=== PATIENT | male | born 1995 | race Caucasian/White ===

== ENCOUNTER 2016-03-27 15:49 | Inpatient (IN) | payer BC ==
[~2016-03-27] VITALS: Ht 175.3 cm; Wt 72.5 kg
[~2016-03-27 15:49] MED LIST: ALBU18002 INH; IBUP-103 PO
[2016-03-27 16:42] LABS: MANUAL MICROSCOPIC REQUIRED? NO; REVIEW REQ? NO; URINE APPEARANCE CLEAR (CLEAR); URINE BILIRUBIN NEG (NEG); URINE COLOR YELLOW; URINE NITRITE NEG (NEG); URINE PH 7.5 (4.5-7.5); URINE SPECIFIC GRAVITY 1.005 (1.000-1.030); UROBILINOGEN NEG (NEG)
[2016-03-27 17:01] LABS: BASO % 0.3 %; BASO ABS # 0.02 K/uL (0-0.2); COMPLETE YES; HEMATOCRIT 41.1 % (42-52); IG% 0.3 %; LYMPH % 28.9 %; LYMPH ABS # 1.87 K/uL (1.2-3.4); MEAN CELL VOLUME 89.2 fL (80-100); MEAN CORPUSCULAR HEMOGLOBIN 32.3 pg (25-34); MEAN CORPUSCULAR HGB CONC 36.3 g/dl (32-36); MEAN PLATELET VOLUME 11.4 fL (7.4-10.4); MONO % 13.1 %; NEUT % 55.4 %; PLATELET COUNT 161 K/uL (130-400); RED BLOOD COUNT 4.61 M/uL (4.7-6.1); WHITE BLOOD COUNT 6.48 K/uL (4.8-10.8)
[2016-03-27 17:08] LABS: BENZODIAZEPINE, URINE NEG (NEG); COCAINE,URINE NEG (NEG); PHENCYCLIDINE, URINE NEG (NEG)
[2016-03-27 17:21] LABS: CREATININE 0.87 mg/dl (0.60-1.40)
[2016-03-27 17:22] LABS: BUN/CREATININE RATIO 15.4 (10-20); CALCIUM 8.5 mg/dl (8.5-10.1)
[2016-03-27 17:25] LABS: ACETAMINOPHEN < 2 ug/ml (10-30)
[2016-03-27 17:32] LABS: ALB/GLOB RATIO 1.5 (0.9-2); THYROID STIMULATING HORMONE 1.07 uIu/ml (0.300-4.500)
--- NOTE | 2016-03-27 17:36 | EMERGENCY ROOM VISIT NOTE ---
History Report prepared by Emelia: Arlen Troncoso Under the Supervision of: Dr. Armaan Stringer M.D. First contact with patient: 16:12 Chief Complaint: MENTAL HEALTH EVALUATION Stated Complaint: MENTAL HEALTH EVALUATION History of Present Illness The patient is a 20 year old male who presents to the Emergency Room with complaints of worsening suicidal ideation that started one month ago. He states that over the past month he has developed "intrusive suicidal ideations." He has experienced suicidal ideations in the past, but never to this extent. The patient states that over the past week he has experienced radical lifestyle changes. He has a history of substance abuse including, opiates, benzodiazepines , amphetamines, multiple psychedelic drugs, marijuana, and alcohol. The patient states that the last time he has used any of those things was one week ago when he drank alcohol. He states that he has been clean from opiates for 1.5 years and clean from benzodiazepines and amphetamines for several months. The patient was meeting with his therapist earlier today when his therapist expressed concern about the thoughts that he was having. The patient's therapist is at bedside and he states that he was concerned about the patient's disorganized and tangential thought process along with his suicidal ideations with plans of overdosing on benzodiazepines and alcohol. The patient states that he came here for further help. He does not see a psychiatrist or psychologist and he is not on any psych medications. The patient has seen psychiatric doctors in the past, but currently only sees his therapist. The patient states that he has been experiencing headaches, fatigue, and generalized body aches for the past couple weeks. He adds that he experienced nausea two days ago. Pt denies LOC, fevers, chills, diaphoresis, visual changes , neck pain, chest pain, breathing difficulties, vomiting, abdominal pain, back pain, melena, hematochezia, urinary symptoms, numbness, weakness, lymphadenopathy, rash, or other complaints. Source of History: patient, other (therapist) Onset: one month ago Position: head Quality: other (suicidal ideation) Timing: worsening Associated Symptoms: + fatigue, + headache, + nausea Note: generalized body aches Review of Systems See HPI for pertinent positives and negatives. A total of ten systems were reviewed and were otherwise negative. Past Medical & Surgical Medical Problems: (1) Asthma Family History FH: cancer Social History Smoking Status: Former Smoker Marital Status: single Housing Status: lives with family Occupation Status: student Current/Historical Medications Scheduled PRN Albuterol Sulfate (Proair Respiclick), 1 PUFF INH UD PRN for Shortness of Breath Ibuprofen Tab (Advil), 400-600 MG PO Q6H PRN for Headache or Pain Allergies Coded Allergies: Dust Mite Extract (Verified Allergy, Unknown, ., 03/27/16) Physical Exam Vital Signs Date Time Temp Pulse Resp B/P Pulse Ox O2 Delivery O2 Flow Rate FiO2 03/27/16 16:04 37.0 79 20 123/72 95 Room Air Physical Exam GENERAL: Awake, alert, well appearing, no distress HENT: Normocephalic, atraumatic. TM's normal. Oropharynx unremarkable. EYES: PERRL. EOMI. Normal conjunctiva. Sclera non-icteric. NECK: Supple. No nuchal rigidity. FROM. No JVD or bruit. RESPIRATORY: CTA CARDIAC: RRR. No murmur. ABDOMEN: Soft, non distended. No tenderness to palpation. No rebound or guarding. No masses. MUSCULOSKELETAL: Unremarkable. No edema. No discoloration. Gross motor strength symmetric. NEURO: Cranial nerves 2-12 grossly intact. Normal sensorium. No sensory or motor deficits noted. Speech normal. No pronator drift. SKIN: No rash or jaundice noted. LYMPH: No adenopathy. PSYCH: Depressed mood. Flat affect. Suicidal ideation with plan. No homicidal ideation. Medical Decision & Procedures Laboratory Results 03/27/16 16:50 Red Blood Count 4.61, Mean Corpuscular Volume 89.2, Mean Corpuscular Hemoglobin 32.3, Mean Corpuscular Hemoglobin Concent 36.3, Mean Platelet Volume 11.4, Neutrophils (%) (Auto) 55.4, Lymphocytes (%) (Auto) 28.9, Monocytes (%) (Auto) 13.1, Eosinophils (%) (Auto) 2.0, Basophils (%) (Auto) 0.3, Neutrophils # (Auto ) 3.59, Lymphocytes # (Auto) 1.87, Monocytes # (Auto) 0.85, Eosinophils # (Auto ) 0.13, Basophils # (Auto) 0.02 03/27/16 16:50 Test 03/27/16 16:22 03/27/16 16:50 Urine Color YELLOW Urine Appearance CLEAR (CLEAR) Urine pH 7.5 (4.5-7.5) Urine Specific [place] 1.005 (1.000-1.030) Urine Protein NEG (NEG) Urine Glucose (UA) NEG (NEG) Urine Ketones NEG (NEG) Urine Occult Blood NEG (NEG) Urine Nitrite NEG (NEG) Urine Bilirubin NEG (NEG) Urine Urobilinogen NEG (NEG) Urine Leukocyte Esterase NEG (NEG) Urine Opiates Screen NEG (NEG) Urine Methadone, Qualitative NEG (NEG) Urine Barbiturates NEG (NEG) Urine Phencyclidine (PCP) Level NEG (NEG) Ur Amphetamine/Methamphetamine NEG (NEG) MDMA (Ecstasy) Screen NEG (NEG) Urine Benzodiazepines Screen NEG (NEG) Urine Cocaine Metabolite NEG (NEG) Urine Marijuana (THC) NEG (NEG) White Blood Count 6.48 K/uL (4.8-10.8) Red Blood Count 4.61 M/uL (4.7-6.1) Hemoglobin 14.9 g/dL (14.0-18.0) Hematocrit 41.1 % (42-52) Mean Corpuscular Volume 89.2 fL (80-100) Mean Corpuscular Hemoglobin 32.3 pg (25-34) Mean Corpuscular Hemoglobin Concent 36.3 g/dl (32-36) Platelet Count 161 K/uL (130-400) Mean Platelet Volume 11.4 fL (7.4-10.4) Neutrophils (%) (Auto) 55.4 % Lymphocytes (%) (Auto) 28.9 % Monocytes (%) (Auto) 13.1 % Eosinophils (%) (Auto) 2.0 % Basophils (%) (Auto) 0.3 % Neutrophils # (Auto) 3.59 K/uL (1.4-6.5) Lymphocytes # (Auto) 1.87 K/uL (1.2-3.4) Monocytes # (Auto) 0.85 K/uL (0.11-0.59) Eosinophils # (Auto) 0.13 K/uL (0-0.5) Basophils # (Auto) 0.02 K/uL (0-0.2) RDW Standard Deviation 39.0 fL (36.4-46.3) RDW Coefficient of Variation 12.1 % (11.5-14.5) Immature Granulocyte % (Auto) 0.3 % Immature Granulocyte # (Auto) 0.02 K/uL (0.00-0.02) Anion Gap 9.0 mmol/L (3-11) Est Creatinine Clear Calc Drug Dose 134.4 ml/min Estimated GFR () 143.0 Estimated GFR (Non- 123.4 BUN/Creatinine Ratio 15.4 (10-20) Calcium Level 8.5 mg/dl (8.5-10.1) Total Bilirubin 0.7 mg/dl (0.2-1) Direct Bilirubin 0.2 mg/dl (0-0.2) Aspartate Amino Transf (AST/SGOT) 18 U/L (15-37) Alanine Aminotransferase (ALT/SGPT) 20 U/L (12-78) Alkaline Phosphatase 77 U/L (45-117) Total Protein 7.2 gm/dl (6.4-8.2) Albumin 4.3 gm/dl (3.4-5.0) Globulin 2.9 gm/dl (2.5-4.0) Albumin/Globulin Ratio 1.5 (0.9-2) Thyroid Stimulating Hormone (TSH) 1.070 uIu/ml (0.300-4.500) Salicylates Level < 1.7 mg/dl (2.8-20) Acetaminophen Level < 2 ug/ml (10-30) Ethyl Alcohol mg/dL < 3.0 mg/dl (0-3) Laboratory results reviewed by me Medications Administered Medications (Trade) Dose Ordered Sig/Joleen Route Start Time Stop Time Status Last Admin Dose Admin Hydroxyzine HCl (Vistaril Tab) 50 mg HSZ PRN PO 03/27/16 19:15 04/26/16 19:14 03/27/16 22:27 50 MG ED Course 1631: The patient was evaluated in room A7. A complete history and physical exam was performed. 1851: I reassessed the patient. He is resting comfortably. 1952: The psych nurse outreach case manager informed me that the patient has been accepted to [address] [place] [address], so he will go there for further management. Medical Decision Triage Nursing notes reviewed and agree them. Additional history obtained from the patient's therapist. The patient's history was concerning for possible psychiatric disturbance. Differential diagnosis: Etiologies such as mood disorder, infection, hypoglycemia, electrolyte abnormalities, cardiac sources, intracerebral event, toxicologic, neurologic, as well as others were entertained. Physical examination: The physical examination was performed as above and was completely benign. No emergent medical pathologies were noted. ER treatment provided: No medication given. On reassessment the patient felt better. Diagnostic interpretation by me: The labs revealed an unremarkable CBC, chemistry panel, LFTs and lipase. Tylenol, salicylate and alcohol levels negative. Urine drug screen negative. Consultation: A consultation was placed with mental health. The patient was evaluated by mental health in the emergency department and they felt admission was warranted. The patient was voluntarily admitted for further treatment. The chart was completed utilizing [employer] Speech voice recognition software. Grammatical errors, random word insertions, pronoun errors, and incomplete sentences are an occasional consequence of this system due to software limitations, ambient noise, and hardware issues. Any formal questions or concerns about the content, text, or information contained within the body of this dictation should be directly addressed to the physician for clarification. Impression Primary Impression: Suicidal ideation Additional Impression: Mood disorder Scribe Attestation The scribe's documentation has been prepared under my direction and personally reviewed by me in its entirety. I confirm that the note above accurately reflects all work, treatment, procedures, and medical decision making performed by me. Departure Information Dispostion [facility] (3 [facility]) Referrals Camelia Macdonald D.O. (PCP) Patient Instructions [facility] Problem Qualifiers
[2016-03-27] MEDS ORDERED: hydrOXYzine HCL 25 MG TAB PO PRN (19:15)
[2016-03-27] MEDS ORDERED: ACETAMINOPHEN 325 MG TAB PO PRN (19:15)
[2016-03-27] MEDS ORDERED: MAGNESIUM HYDROXIDE SUSP 30 ML UDC PO PRN (19:15)
[2016-03-27] MEDS ORDERED: ALUMINUM/MAGNESIUM SUSP 30 ML UDC PO PRN (19:15)
[2016-03-27] MEDS ORDERED: BISMUTH SUBSALICYLATE PER ML OMNICELL CHARGE PO PRN (19:15)
[2016-03-27] MEDS ORDERED: SODIUM CHLORIDE 0.65% NA SOLN 45 ML (OCEAN) PRN (19:15)
[2016-03-27 19:48] VITALS: O2SAT 97
[2016-03-27 19:58] VITALS: BP 140/85; PULSE 90; TEMP 36.9; Ht 175.3 cm; Wt 72.5 kg
[2016-03-27] MEDS: hydrOXYzine HCL 25 MG TAB PO PRN (22:27)
[2016-03-27] MEDS ORDERED: NURSING VERBAL MED ORDER ONE (23:15)
[2016-03-28] MEDS ORDERED: ALBUTEROL HFA INHALER 8.5 GM INH PRN (01:45)
[2016-03-28 06:57] VITALS: BP_SYST 105; BP_SYST 120; BP_DIAS 69; BP_DIAS 71; PULSE 69; PULSE 85; TEMP 36.4
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
[2016-03-28] MEDS: hydrOXYzine HCL 25 MG TAB PO PRN (21:40)
[2016-03-29 06:58] VITALS: BP_SYST 104; BP_SYST 99; BP_DIAS 63; BP_DIAS 70; PULSE 68; PULSE 82; TEMP 36.4
--- NOTE | 2016-03-29 11:39 | Psychiatric Progress Notes ---
Progress Note Date of Service Mar 29, 2016. Interval History 20 yo male admitted voluntarily on 03/28 with depression and suicidality. Patient obtained sobriety from multiple drugs 1 month ago, and is struggling life in a sober state. Chief Complaint "I spent a lot of time meditating yesterday. ". Subjective Patient was seen & assessed interval progress reviewed with Treatment Team. Ray says that he continues in his spiritual journey, looking to mandaen and christian to guide him. He remains convinced, that as an addict, he does not want to rely on medications of any kind, that starting meds would be taking a step back for him. Will to his uatsdin beliefs, he believes that he is intended to suffer along his journey in order to get to the place in life that he wants. He does not see a risk for suicide since he brought himself to the hospital, knowing that he needed help. He says that he now realizes he has a purpose in life, and wants to maximize his opportunity to succeed. He denies SI /HI, denies aud/vis hallucinations. Review of Systems Constitutional: No chills, No fatigue, No fever, No problem reported, No sweats , No weakness, No weight loss ENT: No dental problems, No hearing loss, No nasal symptoms, No problem reported, No sore throat, No tinnitus, No trouble swallowing, No unusual epistaxis Respiratory: No cough, No dyspnea at rest, No dyspnea on exertion, No hemoptysis, No problem reported, No shortness of breath, No sputum, No wheezing Cardiovascular: No PND, No chest pain, No claudication, No edema, No orthopnea , No palpitations, No problem reported Abdomen: No GI bleeding, No constipation, No diarrhea, No nausea, No pain, No problem reported, No vomiting Musculoskeletal: No calf pain, No joint pain, No muscle pain, No problem reported, No swelling Neurologic: No balance problems, No memory loss, No numbness/tingling, No paralysis, No problem reported, No vertigo, No weakness Psychiatric: + anxiety, + depression symptoms Integumentary: No bleeding, No color change, No itch, No new/changing skin lesions, No problem reported, No rash Sleep Information Total Hours of Sleep: 7.00 Meal Information Percent of Breakfast Consumed: 100 Percent of Lunch Consumed: 100 Percent of Dinner Consumed: 100 Mental Status Exam During interview pt is: alert and oriented, cooperative Appearance: appropriately dressed, appropriately groomed Eye contact is: fair Motor behavior is: steady gait & station, no abnormal motor movements Speech: other (rapid but not pressured, pendantic, tends to use many flowery words and concepts to get his point across) Affect: mood congruent, blunted Mood is: depressed, anxious Thought process: looseness of associations Thought content: reality based without delusions (but eccentric) Suicidal thought are: denied Homicidal thoughts are: denied Hallucinations: denies auditory, denies visual Cognition: memory grossly intact, attention grossly intact Intelligence estimated to be: average Insight: limited Judgement: limited Impression Ray is adjusting to the unit and finding it a good place to meditate and explore his goals and how to remain focused on life. He does not, however, want to start meds, but wants to rely on therapy and his spiritual affiliations. I have provided him with information on Effexor for his ongoing consideration, and would like to give him a few more days to learn healthy coping strategies before considering discharge. Right now he has some very spiritual ideas about moving forward, little of which will provide him help when reality hits and he can't manage his school and work. Will continue to work on grounding. Continued Inpatient Care He continues to require inpatient care due to the severity of his condition, and lack of mediation of any risk factors for suicde. Plan (1) Major depressive disorder, recurrent severe without psychotic features 03/29 - Patient continues to refuse meds, wanting to rely on therapy and spirituality. Will continue to discuss - Q 15 min checks for safety - Encourage participation in group and individual counseling - Family meeting - Coordinate with therapist - REcommend a trail of Effexor - Assist the patient to learn and utilize healthy coping strategies (2) Polysubstance dependence 03/29 - In early remission, sober X 1 month - Recommend OP substance abuse treatment - Recovery protocol Discharge / Aftercare Planning Therapist: Name: Armaan Hernandes at [facility] Visit Code E&M Code: 99080 Risk Factors Assessment Male: Yes : Yes /single/: Yes Higher / Fall in social status: No Access to guns: Yes Health problems: No Mental Health Diagnoses: Yes Substance use disorders: Yes Previous attempt: No Previous psychiatric stay: No Smoker: No Protective Factors Assessment Jew beliefs: Yes : No Responsible for young children: No Employed: Yes Stable relationships: Yes Supportive family: Yes Good rapport with provider: Yes Data Vital Signs Last 24 Hrs: Date Time Temp Pulse Resp B/P Pulse Ox O2 Delivery O2 Flow Rate FiO2 03/29/16 06:58 36.4 68 15 99/63 82 104/70 Meds Administered Last 24 Hrs: Meds Administered (Past 24Hrs) Medications (Trade) Dose Ordered Sig/Joleen Route Start Time Stop Time Status Last Admin Dose Admin Hydroxyzine HCl (Vistaril Tab) 50 mg HSZ PRN PO 03/27/16 19:15 04/26/16 19:14 03/28/16 21:40 50 MG Lab Results Last 24 Hrs: 03/27/16 16:50 Red Blood Count 4.61, Mean Corpuscular Volume 89.2, Mean Corpuscular Hemoglobin 32.3, Mean Corpuscular Hemoglobin Concent 36.3, Mean Platelet Volume 11.4, Neutrophils (%) (Auto) 55.4, Lymphocytes (%) (Auto) 28.9, Monocytes (%) (Auto) 13.1, Eosinophils (%) (Auto) 2.0, Basophils (%) (Auto) 0.3, Neutrophils # (Auto ) 3.59, Lymphocytes # (Auto) 1.87, Monocytes # (Auto) 0.85, Eosinophils # (Auto ) 0.13, Basophils # (Auto) 0.02 03/27/16 16:50 Test 03/27/16 16:22 03/27/16 16:50 Urine Color YELLOW Urine Appearance CLEAR (CLEAR) Urine pH 7.5 (4.5-7.5) Urine Specific [place] 1.005 (1.000-1.030) Urine Protein NEG (NEG) Urine Glucose (UA) NEG (NEG) Urine Ketones NEG (NEG) Urine Occult Blood NEG (NEG) Urine Nitrite NEG (NEG) Urine Bilirubin NEG (NEG) Urine Urobilinogen NEG (NEG) Urine Leukocyte Esterase NEG (NEG) Urine Opiates Screen NEG (NEG) Urine Methadone, Qualitative NEG (NEG) Urine Barbiturates NEG (NEG) Urine Phencyclidine (PCP) Level NEG (NEG) Ur Amphetamine/Methamphetamine NEG (NEG) MDMA (Ecstasy) Screen NEG (NEG) Urine Benzodiazepines Screen NEG (NEG) Urine Cocaine Metabolite NEG (NEG) Urine Marijuana (THC) NEG (NEG) White Blood Count 6.48 K/uL (4.8-10.8) Red Blood Count 4.61 M/uL (4.7-6.1) Hemoglobin 14.9 g/dL (14.0-18.0) Hematocrit 41.1 % (42-52) Mean Corpuscular Volume 89.2 fL (80-100) Mean Corpuscular Hemoglobin 32.3 pg (25-34) Mean Corpuscular Hemoglobin Concent 36.3 g/dl (32-36) Platelet Count 161 K/uL (130-400) Mean Platelet Volume 11.4 fL (7.4-10.4) Neutrophils (%) (Auto) 55.4 % Lymphocytes (%) (Auto) 28.9 % Monocytes (%) (Auto) 13.1 % Eosinophils (%) (Auto) 2.0 % Basophils (%) (Auto) 0.3 % Neutrophils # (Auto) 3.59 K/uL (1.4-6.5) Lymphocytes # (Auto) 1.87 K/uL (1.2-3.4) Monocytes # (Auto) 0.85 K/uL (0.11-0.59) Eosinophils # (Auto) 0.13 K/uL (0-0.5) Basophils # (Auto) 0.02 K/uL (0-0.2) RDW Standard Deviation 39.0 fL (36.4-46.3) RDW Coefficient of Variation 12.1 % (11.5-14.5) Immature Granulocyte % (Auto) 0.3 % Immature Granulocyte # (Auto) 0.02 K/uL (0.00-0.02) Anion Gap 9.0 mmol/L (3-11) Est Creatinine Clear Calc Drug Dose 134.4 ml/min Estimated GFR () 143.0 Estimated GFR (Non- 123.4 BUN/Creatinine Ratio 15.4 (10-20) Calcium Level 8.5 mg/dl (8.5-10.1) Total Bilirubin 0.7 mg/dl (0.2-1) Direct Bilirubin 0.2 mg/dl (0-0.2) Aspartate Amino Transf (AST/SGOT) 18 U/L (15-37) Alanine Aminotransferase (ALT/SGPT) 20 U/L (12-78) Alkaline Phosphatase 77 U/L (45-117) Total Protein 7.2 gm/dl (6.4-8.2) Albumin 4.3 gm/dl (3.4-5.0) Globulin 2.9 gm/dl (2.5-4.0) Albumin/Globulin Ratio 1.5 (0.9-2) Thyroid Stimulating Hormone (TSH) 1.070 uIu/ml (0.300-4.500) Salicylates Level < 1.7 mg/dl (2.8-20) Acetaminophen Level < 2 ug/ml (10-30) Ethyl Alcohol mg/dL < 3.0 mg/dl (0-3)
[2016-03-29] MEDS: hydrOXYzine HCL 25 MG TAB PO PRN (23:33)
[2016-03-30 06:58] VITALS: BP_SYST 110; BP_SYST 114; BP_DIAS 69; BP_DIAS 74; PULSE 73; PULSE 83; TEMP 36.4
--- NOTE | 2016-03-30 09:21 | Psychiatric Progress Notes ---
Progress Note Date of Service Mar 30, 2016. Interval History 20 yo male admitted voluntarily on 03/28 with depression and suicidality. Patient obtained sobriety from multiple drugs 1 month ago, and is struggling life in a sober state. Chief Complaint "hard to say I just woke up". Subjective Patient was seen & assessed interval progress reviewed with the nursing staff and treatment team. He reports that he is "just waking up so I can't tell you how I feel" He sites [employer] in a chair he pulled about 2 ft from this provider. He sits in a somewhat erect posture and is notably verbose and using vague terms to asnwer questions but when pressed for detail will share specifics information. He rates mood as 7/10 (10 best, 0 most depressed) stating he is not having SI, when asked what has changed he states that being out of his old job and hope of a new job has helped and "learning coping kills and safety strategies." when pressed he states "meditation" and routine will be helpful to him and states it is his "mindfulness" that caused him to be aware enough to come to the hospital. He continues to decline medication "I want to see how my mood stablizes off all substances" He did take vistaril prn for sleep last night wtih 5.5hours at shift change but was still in bed resting 3 hours after that time waken to verbal stimuli noting he is "groggy" but slept well. He denies racing thoughts, or irritability, and denies h/h/w. He is vague about his safety plan but when revieiwing wrote a very zoroastrian based plan and somewhat hypergraphic nature with things written in the margins as well. He again denies feeling energized today. He states he plans to abstain from substances and return to live with his mother , and f/u in therapy with his therapist, as well as obtain a new job with more regular hours after discharge. Review of Systems He denies symptoms other than "groggyness" on 10 system ROS Sleep Information Total Hours of Sleep: 5.50 (and had several hours additionally after shift change) Meal Information Percent of Breakfast Consumed: 100 Percent of Lunch Consumed: 100 Percent of Dinner Consumed: 90 Mental Status Exam During interview pt is: alert and oriented, cooperative Appearance: appropriately dressed, appropriately groomed (hair is dissheveled and he is in his clothes in bed) Eye contact is: fair Motor behavior is: steady gait & station, no abnormal motor movements Speech: other (rapid but not pressured, pendantic, tends to use many flowery words and concepts and long vague stories to get his point across) Affect: mood congruent, blunted Mood is: other (seems detached and subdued by observation, states it is "okay") Thought process: circumstantial (uses vague and diffuse hyperreligious language and requires significant redirection to deliver his point) Thought content: reality based without delusions (but eccentric) Suicidal thought are: denied Homicidal thoughts are: denied Hallucinations: denies auditory, denies visual Cognition: memory grossly intact, attention grossly intact Intelligence estimated to be: average Insight: limited Judgement: limited Impression Ray is adjusting to the unit and finding it a good place to meditate and explore his goals and how to remain focused on life. He does not, however, want to start meds, but wants to rely on therapy and his spiritual affiliations. He was provided 03/29/16 with information on Effexor for his ongoing consideration, and would like to give him a few more days to learn healthy coping strategies before considering discharge as well as observation to assure this hyperreligious tangential focus is not the emergence of elevated mood state. He has ongoing spiritual ideas about moving forward, little of which will provide him concrete and prgamatic ideas in reality hits and he can' t manage his school and work. Will continue to work on grounding and concrete skills to recognize distress, and have coping skills and support resources to enact when feeling that way. Continued Inpatient Care He continues to require inpatient care due to the severity of his prsenting condition, and lack of mediation of any risk factors for suicide and need to assure stability given his limited insight. Plan (1) Major depressive disorder, recurrent severe without psychotic features 03/29 - Patient continues to refuse meds, wanting to rely on therapy and spirituality. Will continue to discuss - Q 15 min checks for safety - Encourage participation in group and individual counseling - Family meeting - Coordinate with therapist - Recommend a trial of Effexor - Assist the patient to learn and utilize healthy coping strategies 03/30/16 continues to decline daily medication for mood and anxiety challenged him to continue to develop concrete safety plan and coping skills as well as recognition of s/sx when he is in distress, he agrees to do so he needs further inpatient observation as his vauge hyperreligious and slight tendency to hypergraphic worksheet may be signs of personality vs. an emerging mood instability (2) Polysubstance dependence 03/29 and 03/30 - In early remission, sober X 1 month prior to admission - Recommend OP substance abuse treatment - Recovery protocol Discharge / Aftercare Planning Therapist: Name: Armaan Avinashvidhi at [facility] Visit Code E&M Code: 61812 Risk Factors Assessment Male: Yes : Yes /single/: Yes Higher / Fall in social status: No Access to guns: Yes Health problems: No Mental Health Diagnoses: Yes Substance use disorders: Yes Previous attempt: No Previous psychiatric stay: No Smoker: No Protective Factors Assessment Yarsanism beliefs: Yes : No Responsible for young children: No Employed: Yes Stable relationships: Yes Supportive family: Yes Good rapport with provider: Yes Data Vital Signs Last 24 Hrs: Date Time Temp Pulse Resp B/P Pulse Ox O2 Delivery O2 Flow Rate FiO2 03/30/16 06:58 36.4 73 16 110/69 83 114/74 Meds Administered Last 24 Hrs: Current Inpatient Medications Medications (Trade) Dose Ordered Sig/Joleen Route Start Time Stop Time Status Last Admin Dose Admin Acetaminophen (Tylenol Tab) 650 mg Q4H PRN PO 03/27/16 19:15 04/26/16 19:14 Bismuth Subsalicylate (Kaopectate Liqd) 15 ml PRN PRN PO 03/27/16 19:15 04/26/16 19:14 Al Hydroxide/Mg Hydroxide (Maalox Susp) 30 ml Q4H PRN PO 03/27/16 19:15 04/26/16 19:14 Magnesium Hydroxide (Milk Of Magnesia Susp) 30 ml DAILY PRN PO 03/27/16 19:15 04/26/16 19:14 Sodium Chloride ([place] Nasal [place]) PRN PRN NA 03/27/16 19:15 04/26/16 19:14 Hydroxyzine HCl (Vistaril Tab) 50 mg HSZ PRN PO 03/27/16 19:15 04/26/16 19:14 03/29/16 23:33 50 MG Hydroxyzine HCl (Vistaril Tab) 25 mg Q4H PRN PO 03/27/16 19:15 04/26/16 19:14 Albuterol (Proair Hfa) 1 puffs Q4H PRN INH 03/28/16 01:45 04/27/16 01:44
[2016-03-30] MEDS: hydrOXYzine HCL 25 MG TAB PO PRN (23:25)
[2016-03-31 06:59] VITALS: BP_SYST 113; BP_SYST 119; BP_DIAS 77; BP_DIAS 81; PULSE 102; PULSE 82; TEMP 36.5
--- NOTE | 2016-03-31 17:52 | Psychiatric Progress Notes ---
Progress Note Date of Service Mar 31, 2016. Interval History 20 yo male admitted voluntarily on 03/28 with depression and suicidality. Patient obtained sobriety from multiple drugs 1 month ago, and is struggling life in a sober state. Chief Complaint "I am anxious because of an event that just happened". Subjective Patient was seen & assessed interval progress reviewed with Treatment Team He was observed by this provider to dance in a spritely way yesterday and seems to have a consistently expressive way of engaging others but is not hyperverbal , or disorganized, no increased goal directed activity, no evidence of grandiosity. Today when we meet the Patient is notably expressive and shares that he "just had an event which relates to my panic" describing in somewhat expressive yet vague terms overhearing a discussion about sexual issues between a roommate and roommate's mother while patient was resting in the room and sexual discussion caused his first panic attack and he began to feel panic-like. Patient is very overt to reasure this provider that he is using breathing and meditation effectively to calm himself. He rates his anxiety as a 1/10 earlier today, but as a 9/10 at this moment. Mood is a 7/10 "very good" and he feels his jewish reading and meditation is helpful. He plans to ask the counselor for some individual therapy time today. He denies SI, intention or plan. and hopes to reschedule with his outpatient therapist. He is hopeful about changing jobs and living with his mother after discharge. Review of Systems He denies physical concerns on ROS Sleep Information Total Hours of Sleep: 5.50 Meal Information Percent of Breakfast Consumed: 100 Percent of Lunch Consumed: 100 Percent of Dinner Consumed: 100 Mental Status Exam During interview pt is: alert and oriented, cooperative Appearance: appropriately dressed, appropriately groomed (hair is dissheveled and he is in his clothes in bed) Eye contact is: good Motor behavior is: steady gait & station, no abnormal motor movements Speech: other (rapid but not pressured, pendantic, tends to use many flowery words and concepts and long vague stories to get his point across) Affect: mood congruent, euthymic (with an expressive entertaining quality to interacting with this provider and others) Mood is: other (seems jovial but not euphoric) Thought process: circumstantial (he continues to tell stories to share in an expressive way, linear today) Thought content: reality based without delusions (but eccentric) Suicidal thought are: denied Homicidal thoughts are: denied Hallucinations: denies auditory, denies visual Cognition: memory grossly intact, attention grossly intact Intelligence estimated to be: average Insight: fair Judgement: fair Impression Ray is adjusting to the unit and finding it a good place to meditate and explore his goals and how to remain focused on life. He does not, however, want to start meds, but wants to rely on therapy and his spiritual affiliations. He was provided 03/29/16 with information on Effexor for his ongoing consideration, and would like to give him a few more days to learn healthy coping strategies before considering discharge as well as observation to assure this hyperreligious tangential focus is not the emergence of elevated mood state. He has ongoing spiritual ideas about moving forward, little of which will provide him concrete and prgamatic ideas in reality hits and he can' t manage his school and work. Will continue to work on grounding and concrete skills to recognize distress, and have coping skills and support resources to enact when feeling that way. Continued Inpatient Care He continues to require inpatient care due to the severity of his prsenting condition, and lack of mediation of any risk factors for suicide and need to assure stability given his limited insight. Plan (1) Major depressive disorder, recurrent severe without psychotic features 03/29 - Patient continues to refuse meds, wanting to rely on therapy and spirituality. Will continue to discuss - Q 15 min checks for safety - Encourage participation in group and individual counseling - Family meeting - Coordinate with therapist - Recommend a trial of Effexor - Assist the patient to learn and utilize healthy coping strategies 03/30/16 continues to decline daily medication for mood and anxiety challenged him to continue to develop concrete safety plan and coping skills as well as recognition of s/sx when he is in distress, he agrees to do so he needs further inpatient observation as his vague hyperreligious and slight tendency to hypergraphic worksheet may be signs of personality vs. an emerging mood instability 03/31 declines meds is denying s/sx of depression, seems dramatic and odd at times but not overtly manic. Cannot rule out beginning of jasvir, vs. odd- eccentric personality that has histrionic features or schizotypal features (2) Polysubstance dependence 03/29 and 03/30 - In early remission, sober X 1 month prior to admission - Recommend OP substance abuse treatment - Recovery protocol Discharge / Aftercare Planning Therapist: Name: Armaan Da Silvavidhi at [facility] Visit Code E&M Code: 89955 Risk Factors Assessment Male: Yes : Yes /single/: Yes Higher / Fall in social status: No Access to guns: Yes Health problems: No Mental Health Diagnoses: Yes Substance use disorders: Yes Previous attempt: No Previous psychiatric stay: No Smoker: No Protective Factors Assessment Denominational beliefs: Yes : No Responsible for young children: No Employed: Yes Stable relationships: Yes Supportive family: Yes Good rapport with provider: Yes Data Vital Signs Last 24 Hrs: Date Time Temp Pulse Resp B/P Pulse Ox O2 Delivery O2 Flow Rate FiO2 03/31/16 06:59 36.5 82 16 119/81 102 113/77 Meds Administered Last 24 Hrs: Current Inpatient Medications Medications (Trade) Dose Ordered Sig/Joleen Route Start Time Stop Time Status Last Admin Dose Admin Acetaminophen (Tylenol Tab) 650 mg Q4H PRN PO 03/27/16 19:15 04/26/16 19:14 Bismuth Subsalicylate (Kaopectate Liqd) 15 ml PRN PRN PO 03/27/16 19:15 04/26/16 19:14 Al Hydroxide/Mg Hydroxide (Maalox Susp) 30 ml Q4H PRN PO 03/27/16 19:15 04/26/16 19:14 Magnesium Hydroxide (Milk Of Magnesia Susp) 30 ml DAILY PRN PO 03/27/16 19:15 04/26/16 19:14 Sodium Chloride ([place] Nasal [place]) PRN PRN NA 03/27/16 19:15 04/26/16 19:14 Hydroxyzine HCl (Vistaril Tab) 50 mg HSZ PRN PO 03/27/16 19:15 04/26/16 19:14 03/30/16 23:25 50 MG Hydroxyzine HCl (Vistaril Tab) 25 mg Q4H PRN PO 03/27/16 19:15 04/26/16 19:14 Albuterol (Proair Hfa) 1 puffs Q4H PRN INH 03/28/16 01:45 04/27/16 01:44
[2016-03-31] MEDS: hydrOXYzine HCL 25 MG TAB PO PRN (23:40)
[2016-04-01 06:55] VITALS: BP_SYST 117; BP_SYST 121; BP_DIAS 75; BP_DIAS 82; PULSE 101; PULSE 61; TEMP 36.4
--- NOTE | 2016-04-01 09:37 | Discharge Instructions ---
Discharge Information Report Includes Report will include the: Discharge Instructions & Summary Admission Admission Date / Time: Mar 27, 2016 at 19:15 Reason for Admission: Major Depressive Disorder Recurrent Discharge Discharge Diagnosis / Problem: Depression, polysubstance dependence in early remission Condition at Discharge: Good Discharge Goals Goal(s): Decrease discomfort, Improve disease control, Prevent Disease Progression Activity Recommendations Activity Limitations: resume your previous activity . Instructions / Follow-Up Instructions / Follow-Up . SPECIAL CARE INSTRUCTIONS: 1. Follow through with your scheduled aftercare appointments. If unable to keep an appointment, please call to reschedule. 2. Take your medication only as prescribed. Medication should not be changed or stopped without the approval of your doctor. In the event of worsening symptoms or concerns about side effects, contact your doctor immediately. 3. Utilize new healthy coping skills, anger management skills, and stress management skills learned during your hospitalization. Journal feelings and process them with a support person. Identify stressors or situations that may result in relapse, deterioration or inappropriate behaviors and develop a plan to deal with those issues. 4. If your coping skills are ineffective and you are in crisis, contact your outpatient providers for direction. If unable to reach your providers, please call the CAN HELP LINE AT or go to the closest Emergency Room. 5. Avoid alcohol and un-prescribed drugs. 6. You have been provided with the Mental Health Advance Directives Pamphlet for your review. AFTERCARE APPOINTMENTS: * Please call your insurance company prior to your scheduled appointment to confirm your aftercare providers are covered. Take your insurance information to your appointments. . Discharge / Aftercare Planning Therapist: Name Of Therapist: Armaan Hernandes at [facility] . Follow-Up Care Plan for Follow-Up Care: The patient will return to his therapist, Mr. Blas at [facility] Current Hospital Diet Patient's current hospital diet: Regular Diet Discharge Diet Recommended Diet: Regular Diet Procedures Procedures Performed: No Pending Studies Pending Studies at Discharge: No Medical Emergencies . Who to Call and When: Medical Emergencies: For questions or emergencies related to your hospital stay, please contact the Inpatient Behavioral Health Unit at [phone]. A cell changer is on-call 02/09 for the Behavioral Health Unit for emergencies At any time you feel your situation is an emergency, you may also call 911 immediately. . Non-Emergent Contact Non-Emergency issues call your: Primary Care Provider, Therapist Advance Directives Existing Advance Directive: No Do You Have an Existing Mental: No Existing Living Will: No Existing Power of Finance Manager: No Advance Directives Info Given: To Pt/S.O. Discharge Summary Admission HPI Per the Admitting provider: Please see attached H&P Hospital Course (1) Major depressive disorder, recurrent severe without psychotic features 03/29 - Patient continues to refuse meds, wanting to rely on therapy and spirituality. Will continue to discuss - Q 15 min checks for safety - Encourage participation in group and individual counseling - Family meeting - Coordinate with therapist - Recommend a trial of Effexor - Assist the patient to learn and utilize healthy coping strategies 03/30/16 continues to decline daily medication for mood and anxiety challenged him to continue to develop concrete safety plan and coping skills as well as recognition of s/sx when he is in distress, he agrees to do so he needs further inpatient observation as his vague hyperreligious and slight tendency to hypergraphic worksheet may be signs of personality vs. an emerging mood instability 03/31 declines meds is denying s/sx of depression, seems dramatic and odd at times but not overtly manic. Cannot rule out beginning of jasvir, vs. odd- eccentric personality that has histrionic features or schizotypal features (2) Polysubstance dependence 03/29 and 03/30 - In early remission, sober X 1 month prior to admission - Recommend OP substance abuse treatment - Recovery protocol Risk Factors Assessment Male: Yes : Yes /single/: Yes Higher / Fall in social status: No Access to guns: Yes Health problems: No Mental Health Diagnoses: Yes Substance use disorders: Yes Previous attempt: No Previous psychiatric stay: No Smoker: No Protective Factors Assessment Buddhist beliefs: Yes : No Responsible for young children: No Employed: Yes Stable relationships: Yes Supportive family: Yes Good rapport with provider: Yes Day of Discharge Assessment COURSE OF HOSPITALIZATION: The patient was in our unit for 5 days but did not want to start any medications. He has recently, approximately one month ago, stopped abusing drugs and at this point did not want to have to rely on medications to maintain good mood. He presented as somewhat eccentric with many eclectic spiritual and personal ideas about how to manage his depression and substance abuse moving forward. He was a good participant in both group and individual therapy, processing his stressors of school, work and having to move back in with his parents. Suicidal ideation prior to admission, he denied throughout his stay and his mood and anxiety gradually improved. He did still expressed anxiety over making future plans as he plans to quit his current job and consider which can be more focused and successful. He will be moving home with his parents, his mother is a nurse. DAY OF DISCHARGE ASSESSMENT: Today the patient says that his mood is good. He denies any suicidal or homicidal ideation. He did have an episode of anxiety yesterday triggered by overhearing his roommates conversation that reminded him of traumatic conversations from his past. He managed to get through this with the assistance of when necessary Vistaril. He feels safe to be discharged and will be going to the custody of his parents. Today the patient is casually and appropriately dressed and groomed. He makes good eye contact. Gait and station are within normal limits, behavior is unremarkable. Affect is restricted. Speech is somewhat rambling as he tells tales in an overly inclusive fashion. His thoughts are without evidence of thought disorder. Recent and remote memory are intact per conversation. Intelligence is estimated to be average. Insight and judgment are improved over admission. Laboratory 03/27/16 16:50 Red Blood Count 4.61, Mean Corpuscular Volume 89.2, Mean Corpuscular Hemoglobin 32.3, Mean Corpuscular Hemoglobin Concent 36.3, Mean Platelet Volume 11.4, Neutrophils (%) (Auto) 55.4, Lymphocytes (%) (Auto) 28.9, Monocytes (%) (Auto) 13.1, Eosinophils (%) (Auto) 2.0, Basophils (%) (Auto) 0.3, Neutrophils # (Auto ) 3.59, Lymphocytes # (Auto) 1.87, Monocytes # (Auto) 0.85, Eosinophils # (Auto ) 0.13, Basophils # (Auto) 0.02 03/27/16 16:50 Test 03/27/16 16:22 03/27/16 16:50 Urine Color YELLOW Urine Appearance CLEAR (CLEAR) Urine pH 7.5 (4.5-7.5) Urine Specific [place] 1.005 (1.000-1.030) Urine Protein NEG (NEG) Urine Glucose (UA) NEG (NEG) Urine Ketones NEG (NEG) Urine Occult Blood NEG (NEG) Urine Nitrite NEG (NEG) Urine Bilirubin NEG (NEG) Urine Urobilinogen NEG (NEG) Urine Leukocyte Esterase NEG (NEG) Urine Opiates Screen NEG (NEG) Urine Methadone, Qualitative NEG (NEG) Urine Barbiturates NEG (NEG) Urine Phencyclidine (PCP) Level NEG (NEG) Ur Amphetamine/Methamphetamine NEG (NEG) MDMA (Ecstasy) Screen NEG (NEG) Urine Benzodiazepines Screen NEG (NEG) Urine Cocaine Metabolite NEG (NEG) Urine Marijuana (THC) NEG (NEG) White Blood Count 6.48 K/uL (4.8-10.8) Red Blood Count 4.61 M/uL (4.7-6.1) Hemoglobin 14.9 g/dL (14.0-18.0) Hematocrit 41.1 % (42-52) Mean Corpuscular Volume 89.2 fL (80-100) Mean Corpuscular Hemoglobin 32.3 pg (25-34) Mean Corpuscular Hemoglobin Concent 36.3 g/dl (32-36) Platelet Count 161 K/uL (130-400) Mean Platelet Volume 11.4 fL (7.4-10.4) Neutrophils (%) (Auto) 55.4 % Lymphocytes (%) (Auto) 28.9 % Monocytes (%) (Auto) 13.1 % Eosinophils (%) (Auto) 2.0 % Basophils (%) (Auto) 0.3 % Neutrophils # (Auto) 3.59 K/uL (1.4-6.5) Lymphocytes # (Auto) 1.87 K/uL (1.2-3.4) Monocytes # (Auto) 0.85 K/uL (0.11-0.59) Eosinophils # (Auto) 0.13 K/uL (0-0.5) Basophils # (Auto) 0.02 K/uL (0-0.2) RDW Standard Deviation 39.0 fL (36.4-46.3) RDW Coefficient of Variation 12.1 % (11.5-14.5) Immature Granulocyte % (Auto) 0.3 % Immature Granulocyte # (Auto) 0.02 K/uL (0.00-0.02) Anion Gap 9.0 mmol/L (3-11) Est Creatinine Clear Calc Drug Dose 134.4 ml/min Estimated GFR () 143.0 Estimated GFR (Non- 123.4 BUN/Creatinine Ratio 15.4 (10-20) Calcium Level 8.5 mg/dl (8.5-10.1) Total Bilirubin 0.7 mg/dl (0.2-1) Direct Bilirubin 0.2 mg/dl (0-0.2) Aspartate Amino Transf (AST/SGOT) 18 U/L (15-37) Alanine Aminotransferase (ALT/SGPT) 20 U/L (12-78) Alkaline Phosphatase 77 U/L (45-117) Total Protein 7.2 gm/dl (6.4-8.2) Albumin 4.3 gm/dl (3.4-5.0) Globulin 2.9 gm/dl (2.5-4.0) Albumin/Globulin Ratio 1.5 (0.9-2) Thyroid Stimulating Hormone (TSH) 1.070 uIu/ml (0.300-4.500) Salicylates Level < 1.7 mg/dl (2.8-20) Acetaminophen Level < 2 ug/ml (10-30) Ethyl Alcohol mg/dL < 3.0 mg/dl (0-3) Total Time Total Time Spent (min): Greater than 30 minutes Total Time Included: examination of the patient, discharge planning, medication reconciliation, communication with other providers Tobacco Cessation at Discharge FDA approved Prescription: non-smoker
== END 2016-04-01 12:16 | disposition home or self-care (01) | DRG 885 ==
LOC: C.EDB 15:50 → C.MHU 19:15
PROVIDERS: ADMIT Psychiatry & Neurology Child & Adolescent Psychiatry; ATTEND Psychiatry & Neurology Psychiatry
DX: F33.2 Major depressive disorder, recurrent severe without psychotic features (principal); R45.851 Suicidal ideations; F19.20 Other psychoactive substance dependence, uncomplicated; F11.20 Opioid dependence, uncomplicated; F16.20 Hallucinogen dependence, uncomplicated; F15.20 Other stimulant dependence, uncomplicated; F10.20 Alcohol dependence, uncomplicated; J45.909 Unspecified asthma, uncomplicated; Z82.3 Family history of stroke; Z87.891 Personal history of nicotine dependence; Z81.8 Family history of other mental and behavioral disorders; Z81.1 Family history of alcohol abuse and dependence

== ENCOUNTER 2016-05-08 00:27 | Emergency (ER) | payer BC ==
[~2016-05-08] VITALS: Ht 175.3 cm; Wt 76.9 kg
[2016-05-08 00:31] VITALS: TEMP 36.8; Ht 175.3 cm; Wt 76.9 kg
[2016-05-08] MEDS ORDERED: KETOROLAC TROMETHAMINE 30 MG/ML VIAL IV STA (00:40)
[2016-05-08] MEDS ORDERED: ONDANSETRON INJ 2 MG/ML 2 ML VIAL IV STA (00:40)
[2016-05-08] MEDS ORDERED: SODIUM CHLORIDE 0.9% 1000ML 500 ML IV STA (00:40)
[2016-05-08] MEDS ORDERED: SODIUM CHLORIDE 0.9% 1000ML 1,000 ML IV STA (00:40)
[2016-05-08] MEDS: MoRPHine SULFATE 4 MG/ML 1 ML CARP\\VIAL IV PRN ×2 (00:51→01:49)
[2016-05-08 00:53] LABS: HEMATOCRIT 39.5 % (42-52); MEAN CORPUSCULAR HEMOGLOBIN 32.8 pg (25-34); MEAN CORPUSCULAR HGB CONC 36.5 g/dl (32-36); MEAN PLATELET VOLUME 11.3 fL (7.4-10.4); PLATELET COUNT 158 K/uL (130-400); RED BLOOD COUNT 4.39 M/uL (4.7-6.1)
[2016-05-08 01:08] LABS: URINE APPEARANCE CLEAR (CLEAR); URINE BILIRUBIN NEG (NEG); URINE COLOR YELLOW; URINE NITRITE NEG (NEG); URINE PH 6.5 (4.5-7.5); URINE SPECIFIC GRAVITY 1.021 (1.000-1.030); UROBILINOGEN NEG (NEG); ZZUR CULT IF INDIC CLEAN CATCH NO
[2016-05-08 01:11] LABS: MANUAL MICROSCOPIC REQUIRED? NO; REVIEW REQ? NO
--- NOTE | 2016-05-08 01:15 | EMERGENCY ROOM VISIT NOTE ---
History Report prepared by Emelia: Doug Baeza Under the Supervision of: Dr. Jose Luis Correia M.D. First contact with patient: 00:35 Chief Complaint: FLANK PAIN Stated Complaint: SEVERE BACK PAIN,NAUSEA,GROIN PAIN,CHILLS History of Present Illness The patient is a 20 year old male who presents to the Emergency Room with complaints of sudden left flank pain starting around 2230. He currently rates her discomfort as an 8/10 in severity. The patient states that he was sitting playing video games when he got this pain, and he could not move for 15 minutes due to the pain. He states that he then took Advil. He states that the pain goes from a sharp to a dull pain, and it radiates into his abdomen, and it is worsened with movement. The patient additionally complains of being nauseous and testicular pain, though he denies vomiting, urinary issues, and recent traumas. He states that he has a past medical history of a cholecystectomy. The patient denies any known family history of kidney stones. Source of History: patient Onset: 2230 Position: other (left flank) Symptom Intensity: 8/10 Quality: sharp, dull Timing: other (sudden) Modifying Factors (Worsening): movement Associated Symptoms: + nausea, No urinary symptoms, No vomiting Note: Associated symptoms: Testicular pain Review of Systems See HPI for pertinent positives & negatives. A total of 10 systems reviewed and were otherwise negative. Past Medical & Surgical Medical Problems: (1) Asthma (2) Polysubstance dependence Family History FH: cancer Social History Smoking Status: Never Smoker Marital Status: single Housing Status: lives with family Occupation Status: student Current/Historical Medications Scheduled PRN Albuterol Sulfate (Proair Respiclick), 1 PUFF INH UD PRN for Shortness of Breath Ibuprofen Tab (Advil), 400-600 MG PO Q6H PRN for Headache or Pain Allergies Coded Allergies: Dust Mite Extract (Verified Allergy, Unknown, ., 05/08/16) Physical Exam Vital Signs Date Time Temp Pulse Resp B/P Pulse Ox O2 Delivery O2 Flow Rate FiO2 05/08/16 01:53 65 20 126/71 99 Room Air 05/08/16 00:31 36.8 67 20 125/80 99 Room Air Physical Exam GENERAL: Patient is in no acute distress. HEENT: No acute trauma, normocephalic atraumatic, mucous membranes moist, no nasal congestion, no scleral icterus. NECK: No stridor, no adenopathy, no meningismus, trachea is midline. LUNGS: Clear to auscultation bilaterally, no wheeze, no rhonchi, breath sounds equal. HEART: Without murmurs gallops or rubs, regular rate and rhythm. ABDOMEN: Soft, primarily left lower quadrant tenderness, bowel sounds positive, no hernias, no peritonitis. BACK: Left flank discomfort with percussion as well as palpation. Pain worsens with movement. EXTREMITIES: No cyanosis or edema, full range of motion of all the joints without pain or difficulty, no signs for acute trauma. NEUROLOGIC: Oriented x 3, no acute motor or sensory deficits, no focal weakness. SKIN: No rash, no jaundice, no diaphoresis. Medical Decision & Procedures ER Provider Diagnostic Interpretation: CT results as stated below per my review and radiologist interpretation: CT ABDOMEN & PELVIS: Punctate calculus to the lower right kidney. No ureteral stone or hydronephrosis. Cholecystectomy. Normal appendix. No bowel obstruction or perforation. Radiologist: Mathew Hernandez M.D. Laboratory Results 05/08/16 00:45 05/08/16 00:45 Test 05/08/16 00:45 Red Blood Count 4.39 M/uL (4.7-6.1) Mean Corpuscular Volume 90.0 fL (80-100) Mean Corpuscular Hemoglobin 32.8 pg (25-34) Mean Corpuscular Hemoglobin Concent 36.5 g/dl (32-36) RDW Standard Deviation 39.7 fL (36.4-46.3) RDW Coefficient of Variation 12.2 % (11.5-14.5) Mean Platelet Volume 11.3 fL (7.4-10.4) Urine Color YELLOW Urine Appearance CLEAR (CLEAR) Urine pH 6.5 (4.5-7.5) Urine Specific [place] 1.021 (1.000-1.030) Urine Protein NEG (NEG) Urine Glucose (UA) NEG (NEG) Urine Ketones NEG (NEG) Urine Occult Blood NEG (NEG) Urine Nitrite NEG (NEG) Urine Bilirubin NEG (NEG) Urine Urobilinogen NEG (NEG) Urine Leukocyte Esterase NEG (NEG) Anion Gap 8.0 mmol/L (3-11) Est Creatinine Clear Calc Drug Dose 121.8 ml/min Estimated GFR () 130.4 Estimated GFR (Non- 112.5 BUN/Creatinine Ratio 19.5 (10-20) Calcium Level 8.5 mg/dl (8.5-10.1) Lipase 108 U/L (73-393) Laboratory results reviewed by me. Medications Administered Medications (Trade) Dose Ordered Sig/Joleen Route Start Time Stop Time Status Last Admin Dose Admin Sodium Chloride (Nss 1000ml) 500 ml @ 999 mls/hr Q31M STAT IV 05/08/16 00:40 05/08/16 01:10 DC 05/08/16 00:51 999 MLS/HR Ondansetron HCl 4 mg 4 mg NOW STAT IV 05/08/16 00:40 05/08/16 00:42 DC 05/08/16 00:50 4 MG Sodium Chloride (Nss 1000ml) 1,000 ml @ 200 mls/hr Q5H STAT IV 05/08/16 00:40 05/08/16 05:39 05/08/16 00:51 200 MLS/HR Morphine Sulfate (MoRPHine SULFATE INJ) 4 mg Q15M PRN IV 05/08/16 00:45 05/22/16 00:44 05/08/16 01:49 4 MG Ketorolac Tromethamine (Toradol Inj) 30 mg NOW STAT IV 05/08/16 00:40 05/08/16 00:42 DC 05/08/16 00:51 30 MG ED Course 0035: The patient was evaluated in room C3. A complete history and physical exam was performed. 0040: Toradol Inj 30mg IV, Sodium Chloride 1000 ml @ 200 mls/hr IV, Zofran Inj 4mg IV, Sodium Chloride 500 ml @ 999 mls/hr IV 0045: Morphine Sulfate 4mg IV 0200: Oxycodone HCl 1 homepack PO 0201: Reevaluated the patient. Discussed results and discharge instructions: He verbalized understanding and agreement. The patient is ready for discharge. Medical Decision The patient is a 20 year old male who presents to the ED with complaints of left flank pain. Differential diagnoses considered include renal colic, UTI, pyelonephritis, musculoskeletal pain, diverticulitis, hernia, pancreatitis, renal failure. There is no leukocytosis or concerning anemia. No significant electrolyte abnormality or kidney failure. There is no evidence for pancreatitis. Urinalysis does not show hematuria or evidence for infection. Abdominal and pelvis CT does not show any hydronephrosis or acute surgical process. On exam, the patient's pain did seem musculoskeletal as it did worsen with movement. The patient was not febrile or toxic. The patient received IV Toradol, IV saline, IV morphine and IV Zofran. He feels improved. The patient is being discharged home. [id number] Motrin or Advil, heat, massage, stretching were advised. He should not lift heavy. He was given a few oxycodone to use for severe pain. He will return for worsening symptoms. I suspect the pain is musculoskeletal. Impression Primary Impression: Left flank pain Scribe Attestation The scribe's documentation has been prepared under my direction and personally reviewed by me in its entirety. I confirm that the note above accurately reflects all work, treatment, procedures, and medical decision making performed by me. Departure Information Dispostion Home / Self-Care Referrals Camelia Macdonald D.O. (PCP) Forms HOME CARE DOCUMENTATION FORM, IMPORTANT VISIT INFORMATION, School Instructions, Work Instructions Patient Instructions My [facility] Additional Instructions heat gentle stretching and massage may help rest no heavy lifting otc motrin (advil) 600 mg 3x per day for pain may use oxy ir, 1 tab every 4 hours for severe pain return for fever, vomiting or worsening symptoms
[2016-05-08 01:18] LABS: BUN/CREATININE RATIO 19.5 (10-20); CALCIUM 8.5 mg/dl (8.5-10.1); CREATININE 0.96 mg/dl (0.60-1.40); POTASSIUM 3.7 mmol/L (3.5-5.1)
[2016-05-08 01:53] VITALS: BP 126/71; PULSE 65; O2SAT 99
[2016-05-08] MEDS ORDERED: OXYCODONE IR HOME PACK PO ONE (02:00)
--- NOTE | 2016-05-08 06:57 | DIAGNOSTIC IMAGING REPORT ---
CT OF THE ABDOMEN AND PELVIS WITHOUT CONTRAST, STONE PROTOCOL CLINICAL HISTORY: Flank pain. Severe back pain. Chills. COMPARISON STUDY: CT of the abdomen and pelvis August 28, 2013. TECHNIQUE: Helical axial images of the abdomen and pelvis were obtained without IV or oral contrast according to renal stone protocol. FINDINGS: There is a punctate calculus within lower pole of the right kidney. There are no ureteral calculi. There is no hydronephrosis. There is no biliary ductal dilatation status post cholecystectomy. Unenhanced images of the liver, spleen, adrenal glands and pancreas are normal. There is no evidence for a bowel obstruction. The appendix is normal. There is no ascites. There is colonic diverticulosis without evidence for acute diverticulitis. Skeletal structures are unremarkable. IMPRESSION: 1. Punctate nonobstructing right renal calculus. No ureteral calculi or hydronephrosis. 2. No acute process within the abdomen or pelvis on unenhanced exam. Normal appendix. Electronically signed by: Nehemiah Harper M.D. 05/08/2016 6:56 AM Dictated Date/Time: 05/08/2016 6:52 AM
== END 2016-05-08 02:13 | disposition home or self-care (01) ==
LOC: C.EDB 00:28 → C.EDC 02:13
DX: R10.30 Lower abdominal pain, unspecified (principal); Z90.49 Acquired absence of other specified parts of digestive tract; J45.909 Unspecified asthma, uncomplicated

== ENCOUNTER 2016-11-26 21:01 | Emergency (ER) | payer BC ==
[~2016-11-26] VITALS: Ht 175.3 cm; Wt 76.7 kg
[2016-11-26 21:27] VITALS: TEMP 37; Ht 175.3 cm; Wt 76.7 kg
[2016-11-26 21:49] LABS: URINE APPEARANCE CLEAR (CLEAR); URINE BILIRUBIN NEG (NEG); URINE COLOR YELLOW; URINE NITRITE NEG (NEG); URINE SPECIFIC GRAVITY 1.022 (1.000-1.030); UROBILINOGEN NEG (NEG); ZZUR CULT IF INDIC CLEAN CATCH NO
[2016-11-26 22:04] LABS: MANUAL MICROSCOPIC REQUIRED? NO; REVIEW REQ? NO
[2016-11-26 22:07] LABS: BENZODIAZEPINE, URINE NEG (NEG); COCAINE,URINE NEG (NEG); PHENCYCLIDINE, URINE NEG (NEG)
[2016-11-26 22:21] LABS: BASO % 0.2 %; BASO ABS # 0.02 K/uL (0-0.2); COMPLETE YES; EOS % 2.3 %; HEMATOCRIT 41.9 % (42-52); IG% 0.4 %; LYMPH % 28.6 %; LYMPH ABS # 2.39 K/uL (1.2-3.4); MEAN CELL VOLUME 91.3 fL (80-100); MEAN CORPUSCULAR HGB CONC 35.1 g/dl (32-36); MEAN PLATELET VOLUME 11.4 fL (7.4-10.4); MONO % 8.7 %; NEUT % 59.8 %; PLATELET COUNT 151 K/uL (130-400); RED BLOOD COUNT 4.59 M/uL (4.7-6.1); WHITE BLOOD COUNT 8.37 K/uL (4.8-10.8)
[2016-11-26 22:43] LABS: BUN/CREATININE RATIO 15.9 (10-20); CALCIUM 8.8 mg/dl (8.5-10.1); CREATININE 0.96 mg/dl (0.60-1.40); POTASSIUM 3.6 mmol/L (3.5-5.1)
[2016-11-26 22:45] LABS: ACETAMINOPHEN < 2 ug/ml (10-30)
[2016-11-26 22:54] LABS: ALB/GLOB RATIO 1.4 (0.9-2); THYROID STIMULATING HORMONE 3.61 uIu/ml (0.300-4.500)
--- NOTE | 2016-11-26 23:48 | EMERGENCY ROOM VISIT NOTE ---
History Report prepared by Emelia: Jose Carlos Adamson Under the Supervision of: Dr. Veronica Baker D.O. First contact with patient: 22:41 Chief Complaint: MENTAL HEALTH EVALUATION Stated Complaint: CONFUSION, PARANOID, FEAR, DON'T FEEL LIKE MYSELF History of Present Illness The patient is a 21 year old male who presents to the Emergency Room with complaints of an episode of confusion beginning this evening. The patient states that he was at work when he a moment of confusion and paranoia. He describes the episode as a "shift in his base level of consciousness." He notes that his "awareness of his own thoughts and body became confused and disoriented." The patient states that he called the suicide prevention hotline because he did not know what to do and was unable to consider another outlet. He complains of a headache but does not have any other physical concerns. He denies any diarrhea or vomiting. The patient states that he does use marijuana recreationally and does not currently take any medication, smoke, and consume alcohol. He notes taking clonazepam recreationally last week and states that the last time he used recreational marijuana was yesterday. He reports that his mother drove him to the emergency department per his request. Source of History: patient Onset: tonight Quality: other (paranoia) Timing: other (an episode) Associated Symptoms: + headache, No vomiting, No diarrhea Review of Systems See HPI for pertinent positives & negatives. A total of 10 systems reviewed and were otherwise negative. Past Medical & Surgical Medical Problems: (1) Asthma (2) Polysubstance dependence Family History FH: cancer Social History Smoking Status: Former Smoker Alcohol Use: none Drug Use: marijuana Marital Status: single Housing Status: lives with family Occupation Status: student Current/Historical Medications Scheduled PRN Albuterol Sulfate (Proair Respiclick), 1 PUFF INH UD PRN for Shortness of Breath Allergies Coded Allergies: Dust Mite Extract (Verified Allergy, Unknown, ., 11/26/16) Physical Exam Vital Signs Date Time Temp Pulse Resp B/P (MAP) Pulse Ox O2 Delivery O2 Flow Rate FiO2 11/27/16 00:38 61 18 115/61 98 Room Air 11/26/16 21:27 37.0 78 20 116/71 96 Room Air Physical Exam GENERAL: alert, well appearing, well nourished, no distress, non-toxic EYE EXAM: normal conjunctiva, PERRL and EOM's grossly intact OROPHARYNX: no exudate, no erythema, lips, buccal mucosa, and tongue normal and mucous membranes are moist NECK: supple, no nuchal rigidity, no adenopathy, non-tender LUNGS: Clear to auscultation. Normal chest wall mechanics HEART: no murmurs, S1 normal and S2 normal ABDOMEN: abdomen soft, non-tender, normo-active bowel sounds, no masses, no rebound or guarding. BACK: Back is symmetrical on inspection and there is no deformity, no midline tenderness, no CVA tenderness. SKIN: no rashes and no bruising UPPER EXTREMITIES: upper extremities are grossly normal. Nml rom, nml pulses. LOWER EXTREMITIES: No pitting edema. Nml rom, nml pulses. NEURO EXAM: Normal sensorium, cranial nerves II-XII grossly intact, normal speech, no gross weakness of arms, no gross weakness of legs. PSYCH: no SI, no HI, no hallucinations Medical Decision & Procedures Laboratory Results 11/26/16 21:59 Red Blood Count 4.59, Mean Corpuscular Volume 91.3, Mean Corpuscular Hemoglobin 32.0, Mean Corpuscular Hemoglobin Concent 35.1, Mean Platelet Volume 11.4, Neutrophils (%) (Auto) 59.8, Lymphocytes (%) (Auto) 28.6, Monocytes (%) (Auto) 8.7, Eosinophils (%) (Auto) 2.3, Basophils (%) (Auto) 0.2, Neutrophils # (Auto) 5.01, Lymphocytes # (Auto) 2.39, Monocytes # (Auto) 0.73, Eosinophils # (Auto) 0.19, Basophils # (Auto) 0.02 11/26/16 21:59 Test 11/26/16 21:35 11/26/16 21:59 Urine Color YELLOW Urine Appearance CLEAR (CLEAR) Urine pH 6.0 (4.5-7.5) Urine Specific [place] 1.022 (1.000-1.030) Urine Protein NEG (NEG) Urine Glucose (UA) NEG (NEG) Urine Ketones TRACE (NEG) Urine Occult Blood NEG (NEG) Urine Nitrite NEG (NEG) Urine Bilirubin NEG (NEG) Urine Urobilinogen NEG (NEG) Urine Leukocyte Esterase NEG (NEG) Urine Opiates Screen NEG (NEG) Urine Methadone, Qualitative NEG (NEG) Urine Barbiturates NEG (NEG) Urine Phencyclidine (PCP) Level NEG (NEG) Ur Amphetamine/Methamphetamine NEG (NEG) MDMA (Ecstasy) Screen NEG (NEG) Urine Benzodiazepines Screen NEG (NEG) Urine Cocaine Metabolite NEG (NEG) Urine Marijuana (THC) POS (NEG) White Blood Count 8.37 K/uL (4.8-10.8) Red Blood Count 4.59 M/uL (4.7-6.1) Hemoglobin 14.7 g/dL (14.0-18.0) Hematocrit 41.9 % (42-52) Mean Corpuscular Volume 91.3 fL (80-100) Mean Corpuscular Hemoglobin 32.0 pg (25-34) Mean Corpuscular Hemoglobin Concent 35.1 g/dl (32-36) Platelet Count 151 K/uL (130-400) Mean Platelet Volume 11.4 fL (7.4-10.4) Neutrophils (%) (Auto) 59.8 % Lymphocytes (%) (Auto) 28.6 % Monocytes (%) (Auto) 8.7 % Eosinophils (%) (Auto) 2.3 % Basophils (%) (Auto) 0.2 % Neutrophils # (Auto) 5.01 K/uL (1.4-6.5) Lymphocytes # (Auto) 2.39 K/uL (1.2-3.4) Monocytes # (Auto) 0.73 K/uL (0.11-0.59) Eosinophils # (Auto) 0.19 K/uL (0-0.5) Basophils # (Auto) 0.02 K/uL (0-0.2) RDW Standard Deviation 40.7 fL (36.4-46.3) RDW Coefficient of Variation 12.2 % (11.5-14.5) Immature Granulocyte % (Auto) 0.4 % Immature Granulocyte # (Auto) 0.03 K/uL (0.00-0.02) Anion Gap 7.0 mmol/L (3-11) Est Creatinine Clear Calc Drug Dose 120.8 ml/min Estimated GFR () 129.5 Estimated GFR (Non- 111.8 BUN/Creatinine Ratio 15.9 (10-20) Calcium Level 8.8 mg/dl (8.5-10.1) Total Bilirubin 0.6 mg/dl (0.2-1) Aspartate Amino Transf (AST/SGOT) 24 U/L (15-37) Alanine Aminotransferase (ALT/SGPT) 19 U/L (12-78) Alkaline Phosphatase 70 U/L (45-117) Total Protein 7.2 gm/dl (6.4-8.2) Albumin 4.2 gm/dl (3.4-5.0) Globulin 3.0 gm/dl (2.5-4.0) Albumin/Globulin Ratio 1.4 (0.9-2) Thyroid Stimulating Hormone (TSH) 3.610 uIu/ml (0.300-4.500) Salicylates Level < 1.7 mg/dl (2.8-20) Acetaminophen Level < 2 ug/ml (10-30) Ethyl Alcohol mg/dL < 3.0 mg/dl (0-3) Laboratory results per my review. Medications Administered Medications (Trade) Dose Ordered Sig/Joleen Route Start Time Stop Time Status Last Admin Dose Admin Acetaminophen (Tylenol Tab) 1,000 mg NOW STAT PO 11/27/16 00:01 11/27/16 00:02 DC 11/27/16 00:01 1,000 MG ED Course 2332: The patient was evaluated in room A7. A complete history and physical exam was performed. 0001: Tylenol Tab 1000mg PO 0046: Upon reevaluation, the patient is feeling better. I discussed the findings and the treatment plan with the patient. He verbalizes agreement and understanding. The patient was discharged home. Medical Decision Differential diagnosis: Etiologies such as mood disorder, infection, hypoglycemia, electrolyte abnormalities, cardiac sources, intracerebral event, toxicologic, neurologic, as well as others were entertained. Patient well-appearing, do not feel he is currently under the influence of any drug or alcohol. Doubt any contributing organic pathology or illness. No suspicion for trauma. I do not feel patient is an imminent risk to himself or others. Medication Reconcilliation Current Medication List: was personally reviewed by me Blood Pressure Screening Patient's blood pressure: Normal blood pressure Blood pressure disposition: Did not require urgent referral Impression Primary Impression: Mood disorder Additional Impression: Polysubstance dependence Scribe Attestation The scribe's documentation has been prepared under my direction and personally reviewed by me in its entirety. I confirm that the note above accurately reflects all work, treatment, procedures, and medical decision making performed by me. Departure Information Dispostion Home / Self-Care Referrals Camelia Macdonald D.O. (PCP) Patient Instructions My [facility] Additional Instructions Please follow up as directed by the spring encaser. Please do not use illegal drugs as these can contribute to the feelings you were having. If you have any other new or concerning symptoms, or recurrent episode of what you previously felt, please return to the ER immediately. Problem Qualifiers
[2016-11-27] MEDS ORDERED: ACETAMINOPHEN 500 MG TAB PO STA (00:01)
[2016-11-27 00:38] VITALS: BP 115/61; PULSE 61; O2SAT 98
== END 2016-11-27 00:43 | disposition home or self-care (01) ==
LOC: C.EDB 21:03 → C.EDA 11-27 00:43
DX: F39 Unspecified mood [affective] disorder (principal); J45.909 Unspecified asthma, uncomplicated; Z87.891 Personal history of nicotine dependence; Z91.09 Other allergy status, other than to drugs and biological substances; Z80.9 Family history of malignant neoplasm, unspecified

== ENCOUNTER 2016-11-28 13:43 | Emergency (ER) | payer BC ==
[~2016-11-28] VITALS: Ht 175.3 cm; Wt 75.2 kg
[~2016-11-28 13:43] MED LIST changes: -IBUP-103 PO
[2016-11-28 13:46] VITALS: Ht 175.3 cm; Wt 75.2 kg
--- NOTE | 2016-11-28 14:16 | EMERGENCY ROOM VISIT NOTE ---
History Report prepared by Emelia: Carlos Sun Under the Supervision of: Dr. Sarah Hunter M.D. First contact with patient: 13:51 Chief Complaint: MENTAL HEALTH EVALUATION Stated Complaint: [facility] History of Present Illness The patient is a 21 year old male with a history of polysubstance abuse and marijuana use who presents to the Emergency Room with complaints of worsening abnormal thoughts that started 2 nights ago. He says that 2 nights ago, he had a very unusual experience at work. He states that he felt very detached from his body at work, and was very "out of touch. He adds that is worried that his thoughts might get worse to the point that he would think about hurting himself. He notes that his "awareness was away from reality", and he says that this has been accompanied by intense paranoid thoughts and delusions. The patient adds that he feels delusional. He was then seen here 2 nights ago. He says that he went to [facility] today at [facility], and was sent here for further evaluation. The patient notes that he has been very paranoid about his treatment here, and he is fearful or what will come from being here. He says that he has an "innate distrust of [himself]" and he thinks that people have a certain view of him being treated here at the hospital. The patient adds that he has intermittent headaches, including when he was here 2 nights ago, and he had an awful headache last night. The patient says that his sleep has gotten a bit worse over the last few nights, and did struggle to sleep last night due to his "thoughts going crazy." He states that he had to take Melatonin to sleep. The patient notes that he does not see objects that are not there, but he says that his vision is distorted. He says that he will see lines in the light, and patterns will shift. The patient states that he does not have major auditory hallucinations, but did hear music last night when trying to go to sleep. He has seen a psychiatrist in the past, the first time being his freshman year of college. The patient notes that he has been hospitalized here in the past, including last spring, when he was suicidal and extremely paranoid. He says that he has been diagnosed with anxiety and depression. He states that he feels a bit less helpless now as compared to his episode last spring. The patient currently denies any suicidal ideations, and says that he has never had homicidal ideations. The patient states that he has never had a suicide attempt, but did try to cut himself once in early high school. He says that has not used any substances in the past 3 days, but has used Clonazepam and Adderall in the past week. He states that he does not have any prescribed medications. The patient's mother says that the patient has expressed "out of body experiences recently". The patient lives at home with his mother and works part-time at the [employer], as well as being a part-time student at [employer]. Source of History: patient, parent (mother) Onset: 2 nights ago Position: other (global - abnormal thoughts) Quality: other ("detached from body", "out of touch") Timing: worsening Associated Symptoms: + headache (intermittent) Note: Associated symptoms: States that he is very paranoid. Not sleeping so well past few nights. "Thoughts going crazy". Denies suicidal or homicidal ideations. Review of Systems See HPI for pertinent positives & negatives. A total of 10 systems reviewed and were otherwise negative. Past Medical & Surgical Medical Problems: (1) Anxiety (2) Asthma (3) Depression (4) Polysubstance dependence Surgical Problems: (1) History of cholecystectomy Family History FH: cancer Social History Smoking Status: Former Smoker Alcohol Use: none Drug Use: marijuana Marital Status: single Housing Status: lives with family Occupation Status: student Current/Historical Medications Scheduled PRN Albuterol Sulfate (Proair Respiclick), 1 PUFF INH UD PRN for Shortness of Breath Allergies Coded Allergies: Dust Mite Extract (Verified Allergy, Unknown, ., 11/28/16) Physical Exam Vital Signs Date Time Temp Pulse Resp B/P (MAP) Pulse Ox O2 Delivery O2 Flow Rate FiO2 11/28/16 20:09 36.8 90 18 113/72 98 Room Air 11/28/16 15:01 72 16 119/67 97 Room Air 11/28/16 13:46 36.6 68 17 136/78 95 Room Air Physical Exam Vital signs reviewed. General: Well-appearing 21 year old male, in no significant distress. HEENT: No scleral icterus, PERRLA, neck supple. Atraumatic. Cardiovascular: Regular rate and rhythm, no extra sounds. Pulmonary: Clear to auscultation bilaterally, normal work of breathing. Abdomen: Soft, nontender, nondistended, positive bowel sounds. Musculoskeletal: Atraumatic, no peripheral edema. Neurologic: Patient awake alert and oriented x 3, full strength in all 4 extremities. Cranial nerves 2 through 12 grossly intact. Psych: No suicidal or homicidal ideations. Skin: Warm, dry, no rash Medical Decision & Procedures ER Provider Diagnostic Interpretation: CT results as stated below per my review and radiologist interpretation: HEAD CT NONCONTRAST CT DOSE: 537.48 mGy.cm HISTORY: Headache. Altered mental status. TECHNIQUE: Multiaxial CT images of the head were performed without the use of intravenous contrast. Automated exposure control was utilized for this study. A dose lowering technique was utilized adhering to the principles of ALARA. Comparison: None. Findings: The paranasal sinuses and mastoid air cells are clear. The calvarium and skull base are intact. The ventricles and sulci are within normal limits. There is no mass, hematoma, midline shift, or acute infarct. Impression: No acute intracranial abnormality. Electronically signed by: Nick Montiel M.D. 11/28/2016 3:03 PM Dictated Date/Time: 11/28/2016 3:01 PM Laboratory Results 11/28/16 14:15 Red Blood Count 5.05, Mean Corpuscular Volume 89.9, Mean Corpuscular Hemoglobin 32.7, Mean Corpuscular Hemoglobin Concent 36.3, Mean Platelet Volume 11.8, Neutrophils (%) (Auto) 61.6, Lymphocytes (%) (Auto) 25.9, Monocytes (%) (Auto) 10.3, Eosinophils (%) (Auto) 1.8, Basophils (%) (Auto) 0.2, Neutrophils # (Auto ) 3.42, Lymphocytes # (Auto) 1.44, Monocytes # (Auto) 0.57, Eosinophils # (Auto ) 0.10, Basophils # (Auto) 0.01 11/28/16 14:15 Test 11/28/16 14:15 11/28/16 14:45 White Blood Count 5.55 K/uL (4.8-10.8) Red Blood Count 5.05 M/uL (4.7-6.1) Hemoglobin 16.5 g/dL (14.0-18.0) Hematocrit 45.4 % (42-52) Mean Corpuscular Volume 89.9 fL (80-100) Mean Corpuscular Hemoglobin 32.7 pg (25-34) Mean Corpuscular Hemoglobin Concent 36.3 g/dl (32-36) Platelet Count 158 K/uL (130-400) Mean Platelet Volume 11.8 fL (7.4-10.4) Neutrophils (%) (Auto) 61.6 % Lymphocytes (%) (Auto) 25.9 % Monocytes (%) (Auto) 10.3 % Eosinophils (%) (Auto) 1.8 % Basophils (%) (Auto) 0.2 % Neutrophils # (Auto) 3.42 K/uL (1.4-6.5) Lymphocytes # (Auto) 1.44 K/uL (1.2-3.4) Monocytes # (Auto) 0.57 K/uL (0.11-0.59) Eosinophils # (Auto) 0.10 K/uL (0-0.5) Basophils # (Auto) 0.01 K/uL (0-0.2) RDW Standard Deviation 39.5 fL (36.4-46.3) RDW Coefficient of Variation 12.1 % (11.5-14.5) Immature Granulocyte % (Auto) 0.2 % Immature Granulocyte # (Auto) 0.01 K/uL (0.00-0.02) Anion Gap 6.0 mmol/L (3-11) Est Creatinine Clear Calc Drug Dose 122.0 ml/min Estimated GFR () 131.2 Estimated GFR (Non- 113.2 BUN/Creatinine Ratio 12.2 (10-20) Calcium Level 9.3 mg/dl (8.5-10.1) Total Bilirubin 1.3 mg/dl (0.2-1) Direct Bilirubin 0.3 mg/dl (0-0.2) Aspartate Amino Transf (AST/SGOT) 22 U/L (15-37) Alanine Aminotransferase (ALT/SGPT) 18 U/L (12-78) Alkaline Phosphatase 75 U/L (45-117) Total Protein 8.2 gm/dl (6.4-8.2) Albumin 4.8 gm/dl (3.4-5.0) Thyroid Stimulating Hormone (TSH) 0.888 uIu/ml (0.300-4.500) Salicylates Level < 1.7 mg/dl (2.8-20) Acetaminophen Level < 2 ug/ml (10-30) Ethyl Alcohol mg/dL < 3.0 mg/dl (0-3) Urine Color YELLOW Urine Appearance CLEAR (CLEAR) Urine pH 7.0 (4.5-7.5) Urine Specific [place] 1.011 (1.000-1.030) Urine Protein NEG (NEG) Urine Glucose (UA) NEG (NEG) Urine Ketones NEG (NEG) Urine Occult Blood NEG (NEG) Urine Nitrite NEG (NEG) Urine Bilirubin NEG (NEG) Urine Urobilinogen NEG (NEG) Urine Leukocyte Esterase TRACE (NEG) Urine WBC (Auto) 0 /hpf (0-5) Urine RBC (Auto) 0-4 /hpf (0-4) Urine Hyaline Casts (Auto) 0 /lpf (0-5) Urine Epithelial Cells (Auto) 0-5 /lpf (0-5) Urine Bacteria (Auto) NEG (NEG) Urine Opiates Screen NEG (NEG) Urine Methadone, Qualitative NEG (NEG) Urine Barbiturates NEG (NEG) Urine Phencyclidine (PCP) Level NEG (NEG) Ur Amphetamine/Methamphetamine NEG (NEG) MDMA (Ecstasy) Screen NEG (NEG) Urine Benzodiazepines Screen NEG (NEG) Urine Cocaine Metabolite NEG (NEG) Urine Marijuana (THC) POS (NEG) Laboratory results per my review. Medications Administered Medications (Trade) Dose Ordered Sig/Joleen Route Start Time Stop Time Status Last Admin Dose Admin Acetaminophen (Tylenol Tab) 650 mg NOW STAT PO 11/28/16 18:31 11/28/16 18:42 DC 11/28/16 18:49 650 MG ED Course 1356: Past medical records reviewed. The patient was evaluated in room A6. A complete history and physical examination was performed. 1831: Ordered Tylenol Tab 650 mg PO. 2030: The patient was signed out to Dr. Vaibhav GONZALES - at change of shift. Medical Decision Differential diagnosis: Etiologies such as mood disorder, infection, hypoglycemia, electrolyte abnormalities, cardiac sources, intracerebral event, toxicologic, neurologic, as well as others were entertained. This patient was evaluated and appeared to be in no significant distress. Patient was medically cleared and evaluated by the psychiatric case manager specialist. Referrals for inpatient treatment on a voluntary basis are underway. The patient has been signed out to Dr. Esposito at the change shift pending inpatient bed placement. Medication Reconcilliation Current Medication List: was personally reviewed by me Blood Pressure Screening Patient's blood pressure: Normal blood pressure Impression Primary Impression: Anxiety Additional Impression: Paranoia Scribe Attestation The scribe's documentation has been prepared under my direction and personally reviewed by me in its entirety. I confirm that the note above accurately reflects all work, treatment, procedures, and medical decision making performed by me. Departure Information Dispostion Still a Patient (signed out to Dr. Esposito) Referrals Camelia Macdonald D.O. (PCP) Patient Instructions My [facility] Problem Qualifiers
[2016-11-28 14:53] LABS: BASO % 0.2 %; BASO ABS # 0.01 K/uL (0-0.2); COMPLETE YES; EOS % 1.8 %; HEMATOCRIT 45.4 % (42-52); IG% 0.2 %; LYMPH % 25.9 %; LYMPH ABS # 1.44 K/uL (1.2-3.4); MEAN CELL VOLUME 89.9 fL (80-100); MEAN CORPUSCULAR HEMOGLOBIN 32.7 pg (25-34); MEAN CORPUSCULAR HGB CONC 36.3 g/dl (32-36); MEAN PLATELET VOLUME 11.8 fL (7.4-10.4); MONO % 10.3 %; NEUT % 61.6 %; PLATELET COUNT 158 K/uL (130-400); RED BLOOD COUNT 5.05 M/uL (4.7-6.1); WHITE BLOOD COUNT 5.55 K/uL (4.8-10.8)
[2016-11-28 15:02] LABS: BUN/CREATININE RATIO 12.2 (10-20); CALCIUM 9.3 mg/dl (8.5-10.1); CREATININE 0.95 mg/dl (0.60-1.40); POTASSIUM 3.9 mmol/L (3.5-5.1)
[2016-11-28 15:05] LABS: URINE APPEARANCE CLEAR (CLEAR); URINE BILIRUBIN NEG (NEG); URINE COLOR YELLOW; URINE EPITHELIAL CELL AUTO 0-5 /lpf (0-5); URINE NITRITE NEG (NEG); URINE SPECIFIC GRAVITY 1.011 (1.000-1.030); UROBILINOGEN NEG (NEG); ZZUR CULT IF INDIC CLEAN CATCH NO
--- NOTE | 2016-11-28 15:05 | DIAGNOSTIC IMAGING REPORT ---
HEAD CT NONCONTRAST CT DOSE: 537.48 mGy.cm HISTORY: Headache. Altered mental status. TECHNIQUE: Multiaxial CT images of the head were performed without the use of intravenous contrast. Automated exposure control was utilized for this study. A dose lowering technique was utilized adhering to the principles of ALARA. Comparison: None. Findings: The paranasal sinuses and mastoid air cells are clear. The calvarium and skull base are intact. The ventricles and sulci are within normal limits. There is no mass, hematoma, midline shift, or acute infarct. Impression: No acute intracranial abnormality. Electronically signed by: Nick Montiel M.D. 11/28/2016 3:03 PM Dictated Date/Time: 11/28/2016 3:01 PM
[2016-11-28 15:12] LABS: MANUAL MICROSCOPIC REQUIRED? NO; REVIEW REQ? NO
[2016-11-28 15:21] LABS: THYROID STIMULATING HORMONE 0.888 uIu/ml (0.300-4.500)
[2016-11-28 15:25] LABS: ACETAMINOPHEN < 2 ug/ml (10-30)
[2016-11-28 15:40] LABS: BENZODIAZEPINE, URINE NEG (NEG); COCAINE,URINE NEG (NEG); PHENCYCLIDINE, URINE NEG (NEG)
[2016-11-28] MEDS ORDERED: ACETAMINOPHEN 325 MG TAB PO STA (18:31)
[2016-11-28 20:09] VITALS: TEMP 36.8
[2016-11-28] MEDS ORDERED: hydrOXYzine HCL 25 MG TAB PO STA ×2 (20:30→23:30)
--- NOTE | 2016-11-29 01:12 | EMERGENCY ROOM VISIT NOTE ---
ED Visit Note First contact with patient: 22:28 I received this patient at change of shift signout from Dr. Hunter. Please see her note for complete history and physical. The patient was medically cleared in the emergency department. He presented to the emergency department for mental evaluation. The patient was felt to be a good candidate for inpatient management. He was evaluated by the mental health caseworker protective services. Bed search was underway. I was notified by the emergency department mental health caseworker protective services the patient accepted at a different facility for inpatient psychiatric care in the morning. I signed his case over to Dr. López at change of shift. Please see his note for continuation of care.
--- NOTE | 2016-11-29 01:39 | EMERGENCY ROOM VISIT NOTE ---
ED Visit Note First contact with patient: 01:36 I assumed the care of the patient from Dr. Esposito. Patient does have a history of major depressive disorder and SI. Patient is positive for THC. Patient had some new cognitive changes. A CT of the head which was completed. Patient's CT negative. Patient is pending transport to to take him to [facility] later this AM. Patient signed out to oncoming physician.
[2016-11-29 11:31] VITALS: BP 124/64; PULSE 90; O2SAT 99
[2016-12-06 14:38] LABS: SYNTHETIC CANNABINOIDS QL URIN NEGATIVE (Negative)
--- NOTE | 2016-12-13 08:22 | EMERGENCY ROOM VISIT NOTE ---
ED Visit Note 21-year-old male was signed off to me at change of shift from Dr. López. The patient was awaiting transport to [facility]. Patient had no further problems while here awaiting transport. The patient was transported to [facility] accompanied by the lowell.
== END 2016-11-29 11:15 ==
LOC: C.EDB 13:44 → C.EDA 11-29 11:15
DX: F41.9 Anxiety disorder, unspecified (principal); F22 Delusional disorders; F32.9 Major depressive disorder, single episode, unspecified; R51 Headache; J45.909 Unspecified asthma, uncomplicated; F19.20 Other psychoactive substance dependence, uncomplicated; F12.90 Cannabis use, unspecified, uncomplicated; Z87.891 Personal history of nicotine dependence